=== PATIENT | female | born 1955 | race Caucasian/White ===

== ENCOUNTER → 2017-01-15 | Outpatient (CLI) | payer BC ==
[~2017-01-15] MED LIST: CIME200T40 PO; DICL100T3 PO; DULO30CA23 PO; ESTR-29 PO; FLUT9.9S EA NOSTRIL; KETO5DRO27 BOTH EYES; LISI1TAB83 PO; LORA10TA7 PO; MELO-273 PO; SIMV20TA6 PO
== END ==
LOC: WC.BC 15:55
PROVIDERS: ATTEND Physician Assistant Medical
DX: N60.12 Diffuse cystic mastopathy of left breast (principal); R92.8 Other abnormal and inconclusive findings on diagnostic imaging of breast
CPT/HCPCS: 76642; 77061; G0206